=== PATIENT | female | born 1940 | race Caucasian/White ===

== ENCOUNTER 2016-10-31 09:02 | Emergency (ER) | payer MEDICARE, BC ==
[~2016-10-31] VITALS: Ht 165.1 cm; Wt 64.4 kg
[~2016-10-31 09:02] MED LIST: ALPR0.255 PO; DONE10TA4 PO; DULO20CA PO; HYDR1TAB; MEMA10TA PO; MILN50TA PO; PREG200C PO; PREG50CA PO; ZOLP5TAB2 PO
[2016-10-31] MEDS ORDERED: IV SET PRIMARY PUMP SET 1 EA INFUS.SET MC ONE (09:09)
[2016-10-31] MEDS ORDERED: ONDANSETRON HCL/PF 4 MG/2 ML VIAL ONE (09:09)
[2016-10-31] MEDS ORDERED: IV NS 0.9% 1,000 ML ONE (09:09)
[2016-10-31] MEDS ORDERED: IV NS 0.9% 1,000 ML BAG IV ONE (09:30)
[2016-10-31] MEDS ORDERED: ONDANSETRON HCL/PF 4 MG/2 ML VIAL IVP ONE (09:30)
[2016-10-31 09:31] LABS: BASOPHILS % (AUTO) 0.4 % (0.0-2.0); DIFF TOTAL % 100 %; EOSINOPHILS # (AUTO) 0.1 /CMM (0.0-0.7); EOSINOPHILS % (AUTO) 0.8 % (0.0-6.0); HEMATOCRIT 38 % (33-45); HEMOGLOBIN 12.5 g/dL (11.5-14.8); LYMPHOCYTES % (AUTO) 11.3 % (20.0-44.0); MEAN CORPUSCULAR HEMOGLOBIN 28 PG (26.0-33.0); MEAN CORPUSCULAR HGB CONC 33 g/dl (31.0-36.0); MEAN CORPUSCULAR VOLUME 86 fL (82-100); MONOCYTES # (AUTO) 0.5 /CMM (0.1-1.30); MONOCYTES % (AUTO) 5.9 % (2.0-12.0); NEUTROPHILS # (AUTO) 7.2 /CMM (1.8-8.9); NEUTROPHILS % (AUTO) 81.6 % (43.0-81.0); PLATELET COUNT (AUTO) 220 /CMM (150-450); RED BLOOD CELL COUNT(AUTO) 4.43 MIL/uL (4.0-5.2); WHITE BLOOD COUNT (AUTO) 8.8 K/uL (4.3-11.0)
[2016-10-31 09:38] LABS: POTASSIUM 4.2 mmol/L (3.5-5.1)
[2016-10-31 09:45] LABS: ALBUMIN 3.3 g/dL (3.4-5.0); BILIRUBIN,DIRECT 0.1 mg/dL (0.0-0.2); BILIRUBIN,TOTAL 0.2 mg/dL (0.2-1.0); INDIRECT BILIRUBIN 0.1 mg/dL (0.0-1.1); TOTAL PROTEIN, SERUM 6.7 g/dL (6.4-8.2)
[2016-10-31 09:47] LABS: TROPONIN I 0.033 ng/mL (0.00-0.056)
[2016-10-31 09:49] LABS: INR 0.97 (0.87-1.13); PROTHROMBIN TIME 10.5 SECS (9.5-12.7)
[2016-10-31 10:17] LABS: KETONES,URINE Negative (NEGATIVE); LEUKOCYTE ESTERASE ,URINE Trace (NEGATIVE); PH,URINE 7.5 (5.0-8.0)
[2016-10-31 10:23] LABS: ADD UA MICROSCOPIC YES
[2016-10-31 10:25] LABS: ADD URINE CULTURE YES
[2016-10-31 11:00] VITALS: BP 94/60
== END 2016-10-31 11:01 | disposition home or self-care (01) ==
LOC: ER 09:05
DX: R09.89 Other specified symptoms and signs involving the circulatory and respiratory systems (principal); R82.99 Other abnormal findings in urine; R79.1 Abnormal coagulation profile
CPT/HCPCS: 36415; 71010; 80048; 80076; 81001; 83880; 84484; 85025; 85730; 87077; 87086; 87186; 93005; 96361; 96374; 99285; A4606; J2405; J7030; 81000-TC; Z7610

== ENCOUNTER 2017-07-10 12:23 | Inpatient (IN) | payer MEDICARE, BC ==
[~2017-07-10] VITALS: Ht 167.6 cm; Wt 54.0 kg
--- NOTE | 2017-07-10 12:38 | NUR ---
R SIDED WEAKNESS SINCE THIS MORNING. PER LAST WELL KNOWN YESTERDAY 1800. RR EVEN AND UNLABORED. PER PT NORMALLY NONVERBAL AND NEEDS SOME ASSISTANCE WITH ADLS. PER R SIDED WEAKNESS AT 1000. NAD NOTED. FOLLOWS COMMANDS. PT PLACED IN MONITOR.
--- NOTE | 2017-07-10 12:52 | NUR ---
ACTIVATED CODE STROKE
--- NOTE | 2017-07-10 12:53 | NUR ---
CALLED [facility] STROKE.
[2017-07-10] MEDS ORDERED: ESCI5TAB PO (13:24)
[2017-07-10] MEDS ORDERED: LOPE2CAP40 PO (13:24)
[2017-07-10] MEDS ORDERED: HYDR-552 PO (13:24)
[2017-07-10] MEDS ORDERED: LACT-179 PO (13:24)
[2017-07-10] MEDS ORDERED: DIVA125C PO (13:24)
[2017-07-10] MEDS ORDERED: ACET-2605 PO (13:24)
[2017-07-10] MEDS ORDERED: ALPR0.25 PO (13:24)
[2017-07-10 13:25] LABS: EOSINOPHILS % (AUTO) 0.2 % (0.0-6.0); HEMATOCRIT 38 % (33-45); MONOCYTES # (AUTO) 0.8 /CMM (0.1-1.30)
[2017-07-10] MEDS ORDERED: IV NS 0.9% 1,000 ML BAG IV ONE (13:30)
[2017-07-10] MEDS ORDERED: ASPIRIN 325 MG TABLET PO ONE (13:30)
[2017-07-10 13:34] LABS: BASOPHILS % (AUTO) 0.5 % (0.0-2.0); HEMOGLOBIN 12.8 g/dL (11.5-14.8); LYMPHOCYTES # (AUTO) 0.8 /CMM (0.8-4.8); LYMPHOCYTES % (AUTO) 8.4 % (20.0-44.0); MEAN CORPUSCULAR HEMOGLOBIN 29 PG (26.0-33.0); MEAN CORPUSCULAR HGB CONC 34 g/dl (31.0-36.0); MEAN CORPUSCULAR VOLUME 88 fL (82-100); MONOCYTES % (AUTO) 8.6 % (2.0-12.0); NEUTROPHILS # (AUTO) 8.1 /CMM (1.8-8.9); NEUTROPHILS % (AUTO) 82.3 % (43.0-81.0); PLATELET COUNT (AUTO) 261 /CMM (150-450); RDW COEFFICIENT OF VARIATION 12.6 (11.5-15.0); RED BLOOD CELL COUNT(AUTO) 4.37 MIL/uL (4.0-5.2); WHITE BLOOD COUNT (AUTO) 9.7 K/uL (4.3-11.0)
[2017-07-10] MEDS ORDERED: ASPIRIN 325 MG TABLET ONE (13:34)
[2017-07-10 13:40] LABS: CALCIUM, SERUM 8.8 mg/dL (8.5-10.1); CARBON DIOXIDE 29 mmol/L (21-32); CHLORIDE 104 mmol/L (98-107); CREATININE 0.7 mg/dL (0.6-1.3); GLUCOSE 109 mg/dL (74-106); SODIUM SERUM 141 mmol/L (136-145); UREA NITROGEN, BLOOD 23 mg/dL (7-18)
[2017-07-10 13:43] LABS: INR 0.92 (0.87-1.13); PROTHROMBIN TIME 9.6 SECS (9.5-12.7)
[2017-07-10 13:46] LABS: ALANINE AMINOTRANSFERASE 27 U/L (12-78); ALBUMIN 3.7 g/dL (3.4-5.0); ALKALINE PHOSPHATASE 59 U/L (46-116); ASPARTATE AMINOTRANSFERASE 20 U/L (15-37); BILIRUBIN,DIRECT 0.1 mg/dL (0.0-0.2); BILIRUBIN,TOTAL 0.5 mg/dL (0.2-1.0); TOTAL PROTEIN, SERUM 7.5 g/dL (6.4-8.2)
--- NOTE | 2017-07-10 14:05 | NUR ---
PATIENT ASSIGNED TO TELE 309-2,
[2017-07-10] MEDS: ASPIRIN EC 325 MG TABLET.DR PO SCH (14:30)
[2017-07-10] MEDS ORDERED: BLOOD SUGAR DIAGNOSTIC 1 EACH STRIP IN SCH (14:30)
[2017-07-10] MEDS ORDERED: DEXTROSE 50%-WATER 50 ML DISP.SYRIN IV PRN (15:00)
[2017-07-10] MEDS ORDERED: INSULIN REGULAR, HUMAN 100 UNIT/ML 3 ML VIAL SQ PRN (15:00)
--- NOTE | 2017-07-10 15:00 | NUR ---
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
--- NOTE | 2017-07-10 15:09 | NUR ---
TEXTED FOR MRI APPROVAL.
[2017-07-10 15:39] LABS: THYROID STIMULATING HORMONE 1.927 uIU/mL (0.358-3.74)
[2017-07-10 16:00] VITALS: BP 133/70
[2017-07-10 16:26] VITALS: BP 133/70
--- NOTE | 2017-07-10 17:00 | NUR ---
INTERNAL COMMUNICATIONS SPECIALIST NOTES TELE MONITOR SHOWS SINUS RHYTHM 68, PATIENT'S ASSESSMENTS COMPLETED, SKIN DRY AND INTACT, NO DISTRESS NOTED, SEEN BY DR. LORENZO, PER MD PATIENT ABLE TO FOLLOW COMMANDS FOR HIM, RE-ASSESSED FOR NIHSS AND PATIENT WAS ABLE TO FOLLOW SOME SIMPLE COMMANDS, BUT THE REST OF ASSESSMENT PATIENT WILL ONLY STARE AT THE STAFF. WILL BE KEPT NPO AT THIS TIME, AND WILL WAIT FOR SWALLOW EVALUATION. BED ALARM ON, CALL LIGHT WITHIN REACH, WILL CONTINUE TO MONITOR.
--- NOTE | 2017-07-10 17:30 | NUR ---
OIL FILTERS INSPECTOR NOTES HOLD ASA ORDER FOR 1430, PATIENT RECEIVED ASA 325MG IN THE ER TODAY.
[2017-07-10] MEDS: BLOOD SUGAR DIAGNOSTIC 1 EACH STRIP IN SCH (17:55)
[2017-07-10 18:22] LABS: BASOPHILS % (AUTO) 0.1 % (0.0-2.0); EOSINOPHILS % (AUTO) 0.1 % (0.0-6.0); HEMATOCRIT 38 % (33-45); HEMOGLOBIN 12.3 g/dL (11.5-14.8); LYMPHOCYTES # (AUTO) 1.1 /CMM (0.8-4.8); LYMPHOCYTES % (AUTO) 11.2 % (20.0-44.0); MEAN CORPUSCULAR HEMOGLOBIN 29 PG (26.0-33.0); MEAN CORPUSCULAR HGB CONC 33 g/dl (31.0-36.0); MEAN CORPUSCULAR VOLUME 88 fL (82-100); MONOCYTES # (AUTO) 0.8 /CMM (0.1-1.30); MONOCYTES % (AUTO) 7.8 % (2.0-12.0); NEUTROPHILS # (AUTO) 8.1 /CMM (1.8-8.9); NEUTROPHILS % (AUTO) 80.8 % (43.0-81.0); PLATELET COUNT (AUTO) 235 /CMM (150-450); RDW COEFFICIENT OF VARIATION 13.5 (11.5-15.0); RED BLOOD CELL COUNT(AUTO) 4.24 MIL/uL (4.0-5.2)
[2017-07-10] MEDS: IV D5/ 0.9% NACL 1,000 ML IV PRN ×2 (18:35→18:46)
--- NOTE | 2017-07-10 18:46 | NUR ---
NON DESTRUCTIVE TESTING INSPECTOR NOTES [facility] FOR MRI CAME AND INFORMED PATIENT SHE WILL GO TO RADIOLOGY FOR AN MRI, 2 STAFF TRIED TRANSFERRING THE PATIENT TO [facility], PATIENT WOULD NOT LET GO OF THE SIDERAIL. ACCORDING TO DAMARIS, IF PATIENT REFUSED RIGHT NOW, THEY WILL TRY AGAIN TOMORROW, AND WILL HAVE THE ACCOMPANY HER, ALSO SO HE CAN TRY TO CALM HER AND MAKE HER STAY STILL FOR THE IMAGES.
--- NOTE | 2017-07-10 19:50 | NUR ---
RN NAVIGATOR NOTES PATIENT ALERT AND ORIENTED X1, AT BEDSIDE MADE AWARE OF MRI TO BE [facility] TOMORROW D/T PATIENT'S REFUSAL, IVF INFUSING AND TOLERATING WELL, NO DISTRESS NOTED, NO CHANGE IN LOC, NO S/SX OF ACUTE STROKE AT THIS TIME, UA SAMPLE OBTAINED AND SENT TO LAB, PATIENT IS CURRENTLY NPO AT THIS TIME FOR SAFETY PRECAUTIONS, AWAITING FOR SWALLOW EVAL, NEEDS ATTENDED AND MET, CALL LIGHT WITHIN REACH, WILL ENDORSE TO PARAMEDICAL AIDE FOR MEME.
--- NOTE | 2017-07-10 20:00 | NUR ---
TELE/RN RECEIVE PATIENT AWAKE, ALERT, NON VERBALLY RESPONSIVE, APPEAR COMFORTABLE, NO SIGNS OF DISTRESS NOTED, CALL LIGHT IN REACH. WILL MONITOR.
[2017-07-10 20:08] VITALS: BP 154/50
[2017-07-11] MEDS: BLOOD SUGAR DIAGNOSTIC 1 EACH STRIP IN SCH ×4 (00:17→17:47)
--- NOTE | 2017-07-11 06:23 | NUR ---
TELE/RN PATIENT AWAKE AT THIS TIME, HAD ON AND OFF SLEEP THE WHOLE SHIFT, NO CHANGE IN CONDITION. ALL NEEDS ATTENDED AT THIS TIME. WILL CONTINUE TO MONITOR.
--- NOTE | 2017-07-11 07:15 | NUR ---
TELE-RN PT IS IN BED, RESTING COMFORTABLY WITH SITTER AT BEDSIDE. PT ON RA, RESPIRATIONS ARE EVEN AND UNLABORED. IV ON LAC AND RFA INTACT AND PATENT, RFA RUNNING D5NS @ 80ML/HR. SAFETY MEASURES ARE IN PLACE, CALL LIGHT IS IN REACH. WILL CONTINUE TO MONITOR.
[2017-07-11 07:22] LABS: BASOPHILS % (AUTO) 0.1 % (0.0-2.0); EOSINOPHILS % (AUTO) 0.5 % (0.0-6.0); HEMATOCRIT 35 % (33-45); HEMOGLOBIN 11.8 g/dL (11.5-14.8); LYMPHOCYTES # (AUTO) 0.9 /CMM (0.8-4.8); LYMPHOCYTES % (AUTO) 10.2 % (20.0-44.0); MEAN CORPUSCULAR HEMOGLOBIN 30 PG (26.0-33.0); MEAN CORPUSCULAR HGB CONC 33 g/dl (31.0-36.0); MEAN CORPUSCULAR VOLUME 88 fL (82-100); MONOCYTES # (AUTO) 0.9 /CMM (0.1-1.30); MONOCYTES % (AUTO) 10.4 % (2.0-12.0); NEUTROPHILS # (AUTO) 6.7 /CMM (1.8-8.9); NEUTROPHILS % (AUTO) 78.8 % (43.0-81.0); PLATELET COUNT (AUTO) 196 /CMM (150-450); RDW COEFFICIENT OF VARIATION 13.4 (11.5-15.0); RED BLOOD CELL COUNT(AUTO) 3.98 MIL/uL (4.0-5.2); WHITE BLOOD COUNT (AUTO) 8.5 K/uL (4.3-11.0)
[2017-07-11 07:56] LABS: CALCIUM, SERUM 8.4 mg/dL (8.5-10.1); CARBON DIOXIDE 25 mmol/L (21-32); CHLORIDE 106 mmol/L (98-107); CREATININE 0.7 mg/dL (0.6-1.3); GLUCOSE 114 mg/dL (74-106); SODIUM SERUM 141 mmol/L (136-145); UREA NITROGEN, BLOOD 18 mg/dL (7-18)
[2017-07-11 08:00] VITALS: BP 135/66
[2017-07-11 08:05] LABS: INR 0.96 (0.87-1.13)
[2017-07-11] MEDS: ASPIRIN EC 325 MG TABLET.DR PO SCH (08:27)
[2017-07-11] MEDS: IV D5/ 0.9% NACL 1,000 ML IV PRN ×2 (08:56→23:43)
[2017-07-11 12:00] VITALS: BP 130/68
[2017-07-11 12:05] LABS: CHOLESTEROL 163 mg/dL (<200); HDL CHOLESTEROL 60 mg/dL (40-60); LDL 89 mg/dL (0-99); TRIGLYCERIDES 85 mg/dL (30-150)
[2017-07-11 16:00] VITALS: BP 144/70
--- NOTE | 2017-07-11 18:19 | NUR ---
RN NOTES PT IS SITTING UP IN BED WITH FAMILY AT BEDSIDE. PT ON RA, RESPIRATIONS ARE EVEN AND UNLABORED. IV ON RFA INTACT AND PATENT, RUNNING D5NS @ 80ML/HR. ALL MEDS WERE GIVEN ORDERED. MRI BRAIN SCAN DONE TODAY, SHOWED NO SIGNS OF INFARCT OR HEMORRHAGE. PT WAS ABLE TO AMBULATE PT WITH ASSISTANCE IN THE HALLWAY. SWALLOW EVAL DONE, PT TOLERATED PUREED DIET WITH NECTAR THICK LIQUIDS. SAFETY MEASURES ARE IN PLACE, CALL LIGHT IS IN REACH. WILL ENDORSE TO ARCHEOLOGY PROFESSOR RN FOR CONTINUITY OF CARE.
--- NOTE | 2017-07-11 19:30 | NUR ---
MS/RN RECEIVE PATIENT LYING ON BED AWAKE, ALERT, NOT VERBALLY RESPONSIVE BUT ABLE TO FOLLOW COMMANDS, COMFORTABLE, NO DISTRESS NOTED, CALL LIGHT IN REACH. WILL MONITOR. FALL PRECAUTION.
[2017-07-11 20:00] VITALS: BP 112/71
[2017-07-12] MEDS: BLOOD SUGAR DIAGNOSTIC 1 EACH STRIP IN SCH ×3 (00:06→12:00)
--- NOTE | 2017-07-12 02:10 | NUR ---
MS/RN PATIENT IS SLEEPING AT THIS TIME, AROUSABLE, APPEAR COMFORTABLE, NO SIGNS OF DISTRESS NOTED, CALL LIGHT IN REACH. WILL CONTINUE TO MONITOR.
--- NOTE | 2017-07-12 07:06 | NUR ---
MS/RN SLEEPING, EASILY AROUSABLE, APPEAR COMFORTABLE, NO DISTRESS NOTED. ALL NEEDS ATTENDED. ENDORSED.
--- NOTE | 2017-07-12 08:11 | NUR ---
- received on bed, sleeping covers provided, alert when talked to but remains nonverbal.
[2017-07-12] MEDS ORDERED: ASPI81TA2 PO (08:58)
[2017-07-12] MEDS: ASPIRIN EC 325 MG TABLET.DR PO SCH (09:23)
--- NOTE | 2017-07-12 12:39 | NUR ---
- came & was informed of discharge today , patient to go back to [facility]. was given the discharged instructions , that patient is to resume her usual meds. & activities & diet, in the assisted living , & incase of problems as; occurrence of weakness of any extremity, shortness of breath, or any severe pain call promptly MD in the assisted living . Patient valuable list was checked , was assisted to dress in her own clothes & discharged instructions were given to for the facility's copy & him. Patient ate lunch about 50% as assisted by . Discharged fully awake,, remained non-verbal , with via wheelchair.IV site was removed & covered with dry dressing ., not in any pain nor distress.
== END 2017-07-12 12:50 | DRG 69 ==
LOC: ER 12:26 → TELE 14:11 → MED 07-11 10:12
PROVIDERS: ADMIT Internal Medicine; ATTEND Internal Medicine
DX: G45.9 Transient cerebral ischemic attack, unspecified (principal); G30.9 Alzheimer's disease, unspecified; R13.10 Dysphagia, unspecified; F02.80 Dementia in other diseases classified elsewhere, unspecified severity, without behavioral disturbance, psychotic disturbance, mood disturbance, and anxiety; I10 Essential (primary) hypertension; M79.7 Fibromyalgia; Z90.710 Acquired absence of both cervix and uterus; Z98.61 Coronary angioplasty status; I25.10 Atherosclerotic heart disease of native coronary artery without angina pectoris; Z79.899 Other long term (current) drug therapy
CPT/HCPCS: 36415; 70450-TC; 70551-TC; 71010-TC; 80048-TC; 80061-TC; 80076-TC; 80305; 82962-TC; 83880; 84443-TC; 84484-TC; 85025-TC; 85730-TC; 87081-TC; 92611-TC; 93307-TC; 93880-TC; A4606; J1815; J7030; J7042; Z7610

== ENCOUNTER 2017-11-13 01:47 | Emergency (ER) | payer MEDICARE, BC ==
[~2017-11-13] VITALS: Ht 167.6 cm; Wt 63.5 kg
[~2017-11-13 01:47] MED LIST changes: +ACET-2605 PO; +ALPR0.25 PO; +ASPI-1169 PO; +DIVA125C PO; -DONE10TA4 PO; -DULO20CA PO; +ESCI5TAB PO; +HYDR-552 PO; -HYDR1TAB; +LACT-179 PO; +LOPE2CAP40 PO; -MEMA10TA PO; -MILN50TA PO; -PREG200C PO; -PREG50CA PO
--- NOTE | 2017-11-13 02:12 | NUR ---
PT WENT TO CT
--- NOTE | 2017-11-13 02:30 | NUR ---
PT RETURNED FROM CT.
--- NOTE | 2017-11-13 03:00 | NUR ---
PT REC'D WARM BLANKETS AND REPOSITIONED IN BED. PT APPEARS RESTLESS AND IS ATTEMPTING TO GET OUT OF BED. PT WAS REPOSITIONED IN BED AND APPEARS TO BE MORE COMFORTABLE.
--- NOTE | 2017-11-13 04:17 | NUR ---
JAVIER FUNES 1 HR.
--- NOTE | 2017-11-13 04:38 | NUR ---
PT APPEARS RESTLESS IN BED. PT ATTEMPTS TO GET UP, BUT PT FOLLOWS COMMANDS AND LIES BACK DOWN IN BED.
[2017-11-13 05:05] VITALS: BP 118/69
== END 2017-11-13 05:06 | disposition home or self-care (01) ==
LOC: ER 01:49
DX: S00.03XA Contusion of scalp, initial encounter (principal); F02.80 Dementia in other diseases classified elsewhere, unspecified severity, without behavioral disturbance, psychotic disturbance, mood disturbance, and anxiety; G30.9 Alzheimer's disease, unspecified; I25.2 Old myocardial infarction; M79.7 Fibromyalgia; Z79.82 Long term (current) use of aspirin; W01.0XXA Fall on same level from slipping, tripping and stumbling without subsequent striking against object, initial encounter; Y93.89 Activity, other specified; Y92.89 Other specified places as the place of occurrence of the external cause; Y99.8 Other external cause status
CPT/HCPCS: 70450; 99284; A4606; Z7610